=== PATIENT | male | born 1940 | race Caucasian/White ===

== ENCOUNTER 2017-03-26 10:45 | Outpatient (CLI) | payer MEDICARE, BC ==
[2017-03-26] MEDS ORDERED: IV NS 0.9% 250 ML IV ONE (11:10)
[2017-03-26] MEDS ORDERED: IOHEXOL-350 100 ML VIAL IV ONE (11:10)
[2017-03-26] MEDS ORDERED: CT SWABBABLE VALVE TRANS SET 1 EA INFUS.SET MC ONE (11:10)
== END 2017-03-26 23:59 | disposition home or self-care (01) ==
LOC: CARD 10:45 → CT 23:59
PROVIDERS: ATTEND Family Medicine
DX: I65.22 Occlusion and stenosis of left carotid artery (principal); I70.0 Atherosclerosis of aorta; M47.892 Other spondylosis, cervical region; M25.78 Osteophyte, vertebrae; M48.02 Spinal stenosis, cervical region
CPT/HCPCS: 70498; J7050; Q9967